=== PATIENT | female | born 1965 | race Caucasian/White ===

== ENCOUNTER 2025-06-11 06:25 | Day surgery (SDC) | payer MEDICARE, MEDICAID, SELFPAY ==
[2025-06-07 08:44] VITALS: BMI 45.4
--- OUTSIDE RECORDS SUMMARY | 2025-06-09 23:59 | XMS_ITS | Continuity of Care Document ---
Author Organization [facility] Adult Address [address] [place] [address]- Care Team Providers Care Web Press Operator Apprentice Name Role Phone Michelle Ward Primary Care Physician Encounter [facility] Date(s): 05/10/25 - 06/09/25 [facility] [address] [place] [address]- Encounter Type: Triage Allergies, Adverse Reactions, Alerts Substance Criticality Severity Reaction Reaction Severity Status metFORMIN Active Augmentin Active Bactrim 1 Unable to assess criticality Persistent Mild yeast infection Active 1yeast overgrowth Immunizations Given and Recorded Vaccine Date Status Refusal Reason zoster vaccine, inactivated 03/14/24 Recorded influenza virus vaccine, inactivated 03/14/24 Calixto rded influenza virus vaccine, inactivated 1 05/05/23 Gi solange influenza virus vaccine, inactivated 2 07/06/22 Gi solange influenza virus vaccine, inactivated 05/16/21 Calixto rded influenza virus vaccine, inactivated 08/17/18 Calixto rded influenza virus vaccine, inactivated 04/06/17 Calixto rded influenza virus vaccine, inactivated 04/14/16 Calixto rded influenza virus vaccine, inactivated 05/07/15 Calixto rded influenza virus vaccine, inactivated 05/16/14 Calixto rded tetanus-diphtheria toxoids (Td) 3 01/08/23 Given pneumococcal 20-valent conjugate vaccine 4 01/08/23 Given pneumococcal 20-valent conjugate vaccine 5 07/06/22 Given SARS-CoV-2 (COVID-19) mRNA BNT-162b2 vac 05/16/21 Recorded SARS-CoV-2 (COVID-19) mRNA BNT-162b2 vac 10/06/20 Recorded SARS-CoV-2 (COVID-19) mRNA BNT-162b2 vac 09/15/20 Recorded hepatitis B adult vaccine 05/07/15 Recorded hepatitis B adult vaccine 07/22/14 Recorded hepatitis B adult vaccine 06/21/14 Recorded Varicella Virus Vaccine 08/01/14 Recorded Measles/Mumps/Rubella Virus Vaccine 08/01/14 Recor ded Measles/Mumps/Rubella Virus Vaccine 06/26/14 Recor ded tetanus/diphtheria/pertussis, acel(Tdap) 04/02/08 Given 1Result Comment: [facility] [id number] 2Result Comment: [id number] 3Result Comment: [facility] [id number] 4Result Comment: [facility] [id number] 5Result Comment: [facility] [id number] Medications Albuterol (Eqv-ProAir HFA) 2 Unknown, Inhalation, 3 Refill(s), Inhale 2 Puffs into the lungs 4 times daily as needed for Wheezing or Shortness of Breath., 0 Refills, 06/17/22 10:52:00 AM EST, Partial fill upon patient request if the prescription is for a schedule II opioid drug. Start Date: 06/17/22 Status: Ordered Medication Dispense Status: Completed Total Allowed Fills: 1 Fills Dispensed: 0 Alcohol Pads See Instructions, # 100 each, Refills 1, Tot. Refills 1, Maintenance, Use 3 times a day for blood glucose check., 05/03/23 11:09:00 AM EDT, Compound, 162, cm, 05/03/23 7:47:00 EDT, Height, 135.8, kg,05/02/23 13:49:00 EDT, Dry Weight Start Date: 05/03/23 Stop Date: 07/02/23 Status: Ordered Medication Dispense Status: Completed Quantity: 100.0 Unit: each Total Allowed Fills: 2 Fills Dispensed: 0 Anoro Ellipta 62.5 mcg-25 mcg/inh inhalation powder 60 each, INHALE ONE PUFF BY MOUTH EVERY DAY, 0 Refills, 06/17/22 10:52:00 AM EST, Partial fill uponpatient request if the prescription is for a schedule II opioid drug. Start Date: 06/17/22 Status: Ordered Medication Dispense Status: Completed Total Allowed Fills: 1 Fills Dispensed: 0 Freestyle lancets Freestyle lancets, See Instructions, # 200 each, Refills 10, Tot. Refills 10, Maintenance, to use to check bld sugars 4 times daily for T2DM, 08/11/22 2:41:00 PM EST, Supply, 162.5, cm, 07/10/22 9:25:00 EST, Height, 134, kg, 03/07/21 14:38:00 EDT, Dry Weight Start Date: 08/11/22 Status: Ordered Medication Dispense Status: Completed Quantity: 200.0 Unit: each Total Allowed Fills: 11 Fills Dispensed: 0 Freestyle Lancets See Instructions, # 200 each, Refills 0, Tot. Refills 0, Maintenance, Use 3 times a day for blood glucose check., 05/03/23 11:10:00 AM EDT, Supply, 162, cm, 05/03/23 7:47:00 EDT, Height, 135.8, kg, 05/02/23 13:49:00 EDT, Dry Weight Start Date: 05/03/23 Stop Date: 06/02/23 Status: Ordered Medication Dispense Status: Completed Quantity: 200.0 Unit: each Total Allowed Fills: 1 Fills Dispensed: 0 FREESTYLE KAILA 3 SENSOR FREESTYLE KAILA 3 SENSOR, See Instructions, # 2 each, Refills 11, Tot. Refills 11, Maintenance, 2 Sensors per month changed q14 days Diagnosis Diabetes E11.9, 05/10/25 4:04:00 PM EDT, Supply, 162, cm, 02/14/25 7:59:00 EDT, Height Start Date: 05/10/25 Status: Ordered Medication Dispense Status: Completed Quantity: 2.0 Unit: each Total Allowed Fills: 12 Fills Dispensed: 0 Freestyle lite meter Freestyle lite meter, See Instructions, # 1 each, Refills 0, Tot. Refills 0, Maintenance, to use tocheck bld sugars 4 times daily for T2DM, 08/11/22 2:42:00 PM EST, Supply, 162.5, cm, 07/10/22 9:25:00 EST, Height, 134, kg, 03/07/21 14:38:00 EDT, Dry Weight Start Date: 08/11/22 Status: Ordered Medication Dispense Status: Completed Quantity: 1.0 Unit: each Total Allowed Fills: 1 Fills Dispensed: 0 Freestyle Lite Monitor See Instructions, # 1 each, Refills 0, Tot. Refills 0, Maintenance, Use 3 times a day for blood glucose check., 05/03/23 11:09:00 AM EDT, Supply, 162, cm, 05/03/23 7:47:00 EDT, Height, 135.8, kg, 05/02/23 13:49:00 EDT, Dry Weight Start Date: 05/03/23 Stop Date: 06/02/23 Status: Ordered Medication Dispense Status: Completed Quantity: 1.0 Unit: each Total Allowed Fills: 1 Fills Dispensed: 0 Freestyle lite test strips Freestyle lite test strips, See Instructions, # 200 each, Refills 10, Tot. Refills 10, Maintenance,Use 3 times a day for blood glucose check., 08/11/22 2:42:00 PM EST, Supply, 162.5, cm, 07/10/22 9:25:00 EST, Height, 134, kg, 03/07/21 14:38:00 EDT, Dry Weight Start Date: 08/11/22 Status: Ordered Medication Dispense Status: Completed Quantity: 200.0 Unit: each Total Allowed Fills: 11 Fills Dispensed: 0 Freestyle Lite Test Strips See Instructions, # 100 each, Refills 1, Tot. Refills 1, Maintenance, Use 3 times a day for blood glucose check., 07/26/23 2:59:00 PM EST, Supply, 162, cm, 05/05/23 11:10:00 EDT, Height, 135.8, kg, 05/02/23 13:49:00 EDT, Dry Weight Start Date: 07/26/23 Stop Date: 09/24/23 Status: Ordered Medication Dispense Status: Completed Quantity: 100.0 Unit: each Total Allowed Fills: 2 Fills Dispensed: 0 gabapentin 300 mg oral capsule 2, capsule, By Mouth, Daily at bedtime, # 60 capsule, Refills 0, Maintenance, 10/15/23 7:00:00 AM EDT, Route to Pharmacy Electronically, [facility] #[id number], 162, cm, 09/06/23 8:02:00 EST, Height, 135.8, kg, 05/02/23 13:49:00 EDT, Dry Weight Start Date: 10/15/23 Status: Ordered Medication Dispense Status: Completed Quantity: 60.0 Unit: capsule Total Allowed Fills: 1 Fills Dispensed: 0 hydrochlorothiazide 25 mg oral tablet 1, tablet, By Mouth, Daily, # 90 tablet, Refills 0, Maintenance, 01/01/25 1:30:00 PM EDT, Route to Pharmacy Electronically, [facility] #[id number], 162, cm, 09/18/24 15:20:00 EST, Height, 135.8, kg, 05/02/23 13:49:00 EDT, Dry Weight Start Date: 01/01/25 Status: Ordered Medication Dispense Status: Completed Quantity: 90.0 Unit: tablet Total Allowed Fills: 1 Fills Dispensed: 0 hydrOXYzine hydrochloride 25 mg oral tablet See Instructions, 1 tablet By Mouth twice a day as needed for anxiety, # 180 tablet, 3 Refills, Soft Stop, 11/05/23 7:02:00 AM EDT, Tablet, [facility] #[id number], Partial fill upon patient request if the prescription is for a schedule II opioid drug., 162, cm, 09/06/23 8:02:00 EST, Height, 135.8, kg, 05/02/23 13:49:00 EDT, Dry Weight Start Date: 11/05/23 Status: Ordered Medication Dispense Status: Completed Quantity: 180.0 Unit: tablet Total Allowed Fills: 4 Fills Dispensed: 0 Lantus Solostar Pen 100 units/mL subcutaneous solution See Instructions, ADMINISTER 55 UNITS UNDER THE SKIN once daily. E11.9, # 30 mL, 5 Refills, Maintenance, 02/14/25 11:37:00 AM EDT, [facility] #[id number], 162, cm, 02/14/25 7:59:00 EDT, Height, 135.8, kg, 05/02/23 13:49:00 EDT, Dry Weight Start Date: 02/14/25 Status: Ordered Medication Dispense Status: Completed Quantity: 30.0 Unit: mL Total Allowed Fills: 6 Fills Dispensed: 0 Lexapro 20 mg oral tablet 1 tablet = 20 mg, By Mouth, Daily, # 30 tablet, 0 Refills, Maintenance, 12/27/17 11:21:54 AM EDT, Tablet Start Date: 12/27/17 Status: Ordered Medication Dispense Status: Completed Quantity: 30.0 Unit: tablet Total Allowed Fills: 1 Fills Dispensed: 0 Mounjaro 10 mg/0.5 mL subcutaneous solution = 10 mg, Subcutaneous Injection, Every week, rotate injection sites; dose increase please fill as pens, # 2 mL, 5 Refills, Maintenance, 04/10/25 1:51:00 PM EDT, Solution, [facility] #[id number], Partial fill upon patient request if the prescription is for a schedule II opioid drug., 162, cm, 02/14/25 7:59:00 EDT, Height, 135.8, kg, 05/02/23 13:49:00 EDT, Dry Weight Start Date: 04/10/25 Status: Ordered Medication Dispense Status: Completed Quantity: 2.0 Unit: mL Total Allowed Fills: 6 Fills Dispensed: 0 NovoLOG FlexPen 100 units/mL injectable solution See Instructions, USE THREE TIMES DAILY BEFORE MEALS BG 100-149 3 UNITS 150-199 5 UNITS 200-249 7 UNITS 240-299 9 UNITS 300-349 11 UNITS 350-400 13 UNITS > 400 15 units Max dailly dose 45 units., # 30 mL, 5 Refills, Maintenance, 02/14/25 12:39:00 PM EDT, [facility] #[id number], 162, cm, 02/14/25 7:59:00 EDT, Height, 135.8, kg, 05/02/23 13:49:00 EDT, Dry Weight Start Date: 02/14/25 Status: Ordered Medication Dispense Status: Completed Quantity: 30.0 Unit: mL Total Allowed Fills: 6 Fills Dispensed: 0 Nystatin Powder Topically, 3 times a day, 0 Refills, Maintenance Start Date: 09/21/19 Status: Ordered Medication Dispense Status: Completed Total Allowed Fills: 1 Fills Dispensed: 0 omeprazole 20 mg oral enteric coated capsule See Instructions, TAKE 1 TABLET BY MOUTH TWICE DAILY, # 180 capsule, 0 Refills, Maintenance, 11/15/23 7:30:00 AM EDT, [facility] #[id number], 162, cm, 11/08/23 7:53:00 EDT, Height, 135.8, kg, 05/02/23 13:49:00 EDT, Dry Weight Start Date: 11/15/23 Status: Ordered Medication Dispense Status: Completed Quantity: 180.0 Unit: capsule Total Allowed Fills: 1 Fills Dispensed: 0 Pen [place], 31 G x 8 mm BD Ultra Fine III See Instructions, # 100 each, Refills 1, Tot. Refills 1, Maintenance, Use 3 times a day for blood glucose check., 05/03/23 11:10:00 AM EDT, Supply, 162, cm, 05/03/23 7:47:00 EDT, Height, 135.8, kg, 05/02/23 13:49:00 EDT, Dry Weight Start Date: 05/03/23 Stop Date: 07/02/23 Status: Ordered Medication Dispense Status: Completed Quantity: 100.0 Unit: each Total Allowed Fills: 2 Fills Dispensed: 0 rosuvastatin 40 mg oral tablet See Instructions, TAKE 1 TABLET BY MOUTH DAILY 90 EACH, TAKE 1 TABLET BY MOUTH DAILY, # 90 tablet, 0 Refills, Maintenance, 04/23/25 10:25:00 AM EDT, [facility] #[id number], 162, cm, 02/14/25 7:59:00 EDT, Height, 135.8, kg, 05/02/23 13:49:00 EDT, Dry Weight Start Date: 04/23/25 Status: Ordered Medication Dispense Status: Completed Quantity: 90.0 Unit: tablet Total Allowed Fills: 1 Fills Dispensed: 0 valsartan 80 mg oral tablet See Instructions, TAKE 1 TABLET BY MOUTH DAILY 90 EACH, TAKE 1 TABLET BY MOUTH DAILY, # 90 tablet, Refills 0, Tot. Refills 0, Maintenance, 04/17/25 10:12:00 PM EDT, Instructions Replace Required Details, Route to Pharmacy Electronically, [facility] #[id number], Please ask pt to complete labs for any further refills., 162, cm, 02/14/25 7:59:00 EDT, Height, 135.8, kg, 05/02/23 13:49:00 EDT, DryWeight Start Date: 04/17/25 Status: Ordered Medication Dispense Status: Completed Quantity: 90.0 Unit: tablet Total Allowed Fills: 1 Fills Dispensed: 0 Vitamin D2 2000 intl units oral capsule 1 capsule = 50 mcg, By Mouth, Daily, # 90 capsule, 2 Refills, Maintenance, 10/07/22 12:07:00 PM EDT,[facility] #[id number], Partial fill upon patient request if the prescription is for a schedule II opioid drug., 162.5, cm, 10/05/22 8:11:00 EDT, Height, 129.4, kg, 10/05/22 7:47:00 EDT, Dry Weight Start Date: 10/07/22 Status: Ordered Medication Dispense Status: Completed Quantity: 90.0 Unit: capsule Total Allowed Fills: 3 Fills Dispensed: 0 Vitamin D3 2000 intl units oral tablet 1 tablet, By Mouth, Daily, # 90 tablet, 1 Refills, Maintenance, 01/24/25 8:58:00 AM EDT, [facility] #[id number], 162, cm, 01/22/25 9:24:00 EDT, Height, 135.8, kg, 05/02/23 13:49:00 EDT, Dry Weight Start Date: 01/24/25 Status: Ordered Medication Dispense Status: Completed Quantity: 90.0 Unit: tablet Total Allowed Fills: 2 Fills Dispensed: 0 Zuplenz 8 mg oral disintegrating strip 1 Unknown, Oral, 6 Refill(s), Take 1 Tablet by mouth 3 times daily as needed (for nausea)., 0 Refills, 06/17/22 10:51:00 AM EST, Partial fill upon patient request if the prescription is for a schedule II opioid drug. Start Date: 06/17/22 Status: Ordered Medication Dispense Status: Completed Total Allowed Fills: 1 Fills Dispensed: 0 Problem List Condition Confirmation Course Effective Dates Status H ealth Status Informant Adjustment reaction with anxiety and depression Confirmed Active Adrenal mass 1 Confirmed Active Lumbar facet arthropathy Confirmed Active Ascending aorta dilatation 2 Confirmed Active Atrophic gastritis without hemorrhage Confirmed Active CTS (carpal tunnel syndrome) Confirmed Active COPD (chronic obstructive pulmonary disease) Confirmed Active Diverticulosis Confirmed Active Environmental allergies Confirmed Active GERD (gastroesophageal reflux disease) Confirmed Active Hemorrhoids 3 Confirmed Active Internal and external hemorrhoids without complication Confirmed Active Hyperlipidemia Confirmed Active HTN (hypertension) Confirmed Active Recurrent incisional hernia with incarceration Confirmed Active IBS (irritable bowel syndrome) Confirmed Active Lipoma Confirmed Active Schatzki's ring Confirmed Active Lumbar discogenic pain syndrome Confirmed Active Pulmonary nodules Confirmed Active JACQUELINE (obstructive sleep apnea) Confirmed Active PTSD (post-traumatic stress disorder) Confirmed Active Seasonal allergies Confirmed Active Gastroparesis due to secondary diabetes Confirmed Active Severe obesity Confirmed Active Hepatic steatosis Confirmed Active Tobacco abuse Confirmed Active Type 2 diabetes mellitus Confirmed Active Vitamin D deficiency Confirmed Active 1L Adrenal Adenoma MRI 05/25/17 [facility] 2[facility]cho 04/2017: Mild ascending aortic dilation, mild to moderate concentric left ventricular hypertrophy, diastolic dysfunction and normal left ventricular systolic function. 3Internal and External Social History Social History Type Response Smoking Status Current every day sm oker; Type: Cigarettes; Other: 1/2 PPD; entered on: 05/08/16 Sex Sex Representation Female (finding) Patient Care team information Care Team Personnel Name: Michelle Ward Position: [facility] PCO Associate Professional Member Role: PCP Address: [address] [place] [address]- Telecom: Name: Angelina Martins Position: [facility] Outreach Member Role: Lifetime Consulting Physician Name: Yulia Gaviria Position: [facility] Outreach Member Role: Lifetime Consulting Physician Name: Ziyad Conway MD Position: [facility] Physician - Endocrinology Member Role: Lifetime Consulting Physician Address: [address] [place] [address], [address] [place], [place] [address] Telecom: Care Team Related Persons Name: LUCY SCHULTE Name: JYOTI VILLALPANDO Name: LATISHA NOLAN Insurance Providers Guarantor name: MICHELLE NOLAN Health Plan Information #: 1 Payer: [employer] ADV PPO Payer Identifier: NA Member Number: [id number] Group Number: [id number] Subscriber Identifier: NA Relationship to Subscriber: self Coverage Type: Medicare PPO Coverage Verification Date: NA Telecom: NA Address: NA Health Plan Information #: 2 Payer: [employer] Payer Identifier: NA Member Number: [id number] Group Number: [id number] Subscriber Identifier: NA Relationship to Subscriber: self Coverage Type: MEDICAID Coverage Verification Date: NA Telecom: NA Address:
--- NOTE | ~2025-06-11 | FL_ITS ---
EXAMINATION: FL GUIDANCE ONLY HISTORY: Procedural guidance COMPARISON: None available. TECHNIQUE: Fluoroscopy time: 12 seconds. Cumulative Dose: 4.50 mGy. DAP: 84.82 uGym2 Images: 1. FINDINGS: A single fluoroscopic spot film of the lumbar spine demonstrates a needle and contrast material in the region of the right L4 pedicle. FL/FL guidance in OR IMPRESSION: Fluoroscopy during procedure. Please see procedure report for additional information. Electronically signed by: Arjun Williamson MD 06/11/2025 08:49 AM EST
--- OUTSIDE RECORDS SUMMARY | 2025-06-11 06:24 | XMS_ITS | Clinical Summary ---
Author Organization [facility] Address [address] [place] [address] Care Team Providers Care Business Continuity Planner Name Role Phone Michelle Mckeon PA-C Primary Care Provider [phone] Allergies Active Allergy Reactions Criticality Noted Date Comments Sulfamethoxazole-Trimethoprim 2018 Medications Medication Sig Dispensed Refills Start Date End Date Status escitalopram (LEXAPRO) 20 MG tablet Take 20 mg by mouth daily. 0 Active simvastatin (ZOCOR) tablet 20 mg Take 40 mg by mouth every night at bedtime. 0 Active furosemide (LASIX) 20 MG tablet Take 1 tablet (20 mg total) by mouth daily. 7 tablet 0 12/05/2018 Active Insulin Glargine (BASAGLAR KWIKPEN SC) Inject 54 Units under the skin. 0 Active loratadine (CLARITIN) 10 MG tablet Take 10 mg by mouth daily. 0 Active hydroCHLOROthiazide (MICROZIDE) 12.5 MG capsule Take 12.5 mg by mouth daily. 0 Active omeprazole (PriLOSEC) 20 MG capsule Take 20 mg by mouth daily. 0 Active dicyclomine (BENTYL) 10 MG capsule Take 1 capsule (10 mg total) by mouth 4 (four) times a day before meals and at bedtime. 30 capsule 0 01/09/2021 Active oxyCODONE (ROXICODONE) 5 MG immediate release tablet Take 1 tablet (5 mg total) by mouth every 6 (six) hours as needed for pain. 10 tablet 0 12/02/2021 Active ondansetron (ZOFRAN-ODT) 4 MG disintegrating tablet Take 1 tablet (4 mg total) by mouth every 6 (six) hours as needed for nausea. 10 tablet 0 12/02/2021 Active predniSONE (DELTASONE) tablet 20 mg 3 tabs daily 15 tablet 0 04/12/2023 Active cyclobenzaprine (FLEXERIL) 10 MG tablet Take 1 tablet (10 mg total) by mouth 3 (three) times a day as needed for muscle spasms. 30 tablet 0 04/12/2023 Active diclofenac (VOLTAREN) 50 MG EC tablet Take 1 tablet (50 mg total) by mouth 2 (two) times a day. 30 tablet 0 04/12/2023 Active gabapentin (NEURONTIN) 300 MG capsule Take 1 capsule (300 mg total) by mouth 3 (three) times a day. 90 capsule 0 04/12/2023 Active Active Problems No known active problems Social History Tobacco Use Types Packs/Day Years Used Date Smoking Tobacco: Every Day Cigarettes 1 Smokeless Tobacco: Never Alcohol Use Standard Drinks/Week Comments No 0 (1 standard drink = 0.6 oz pur e alcohol) Sex and Gender Information Value Date Recorded Sex Assigned at Female 11/10/2018 12:31 AM EDT Gender Identity Not on file Sexual Orientation Not on file Job Start Date Occupation Industry Not on file Not on file Not on file Last Filed Vital Signs Vital Sign Reading Time Taken Comments Blood Pressure 154/65 05/01/2023 3:38 AM EDT Pulse 85 05/01/2023 3:38 AM EDT Temperature 35.9 C (96.6 F) 05/01/2023 1:18 AM EDT Respiratory Rate 18 05/01/2023 3:38 AM EDT Oxygen Saturation 95% 05/01/2023 3:38 AM EDT Inhaled Oxygen Concentration - - Weight 136.1 kg (300 lb) 05/01/2023 1:18 AM EDT Height 162.6 cm (5' 4 ) 05/01/2023 1:18 AM EDT Body Mass Index 51.49 05/01/2023 1:18 AM EDT Plan of Treatment Health Maintenance Due Date Last Done Comments Hepatitis C Screening 1965 Depression Screening 1977 BMI Counseling 10/02/1983 Preventative Health Evaluation 10/02/1983 Tobacco Cessation Counseling 10/02/1983 Cervical Cancer Screening (Pap Smear) 1986 Colon Cancer Screening (Colonoscopy) 2010 Breast Cancer Screening (Mammogram) 10/02/2015 Shingrix-Zoster Vaccine (1 of 2) 10/02/2015 COVID-19 Vaccine ( season) 2025 05/16/2021, 10/06/2020, 09/15/2020 Influenza Vaccine (#1) 2025 2, 05/16/2021, 08/17/2018, Additional history exists DTap / Tdap / Td (3 - Td or Tdap) 01/08/2033 01/08/2023, 04/02/2008 Hepatitis B Vaccines Completed 05/07/2015, 07/22/2014, 06/21/2014 Pneumococcal Vaccine Completed 01/08/2023, 07/06/2022, 08/24/2015 RSV Ped < 20 months Aged Out No longe r eligible based on patient's age to complete this topic Care Teams Business Continuity Planner Relationship Specialty Start Date End Date Michelle Mckeon PA-C [address] [place], [place] [id number] PCP - General Medical Services 04/12/23
--- OUTSIDE RECORDS SUMMARY | 2025-06-11 06:24 | XMS_ITS | Clinical Summary ---
Author Organization [facility] Address [address] [place] [address] Phone Care Team Providers Care Academic Associate Name Role Phone Michelle Mckeon Primary Care Provider [phone] Allergies Active Allergy Reactions Criticality Noted Date Comments Alogliptin GI intolerance Medium 06/18/2020 Amoxicillin-Pot Clavulanate Other 06/16/2022 TONGUE CRACKS Cephalexin Other 04/08/2010 Thrush and sores on mouth Metformin GI intolerance 01/24/2018 Vomitting and diarrhea Pollen Extracts Other 11/29/2015 Post nasal drip , sneezing , runny nose Simvastatin GI intolerance,Cramps 05/24/2019 GI upset Medications pen needle, diabetic 32 gauge x 5/32 needle Inject 1 Each into the skin daily. USE WITH INSULIN PEN EVERY DAY 2 Active FREESTYLE LANCETS MISC Up to four times a day 2 Active blood sugar diagnostic (FreeStyle Lite Strips) test strip USE TO TEST BLOOD SUGAR FOUR TIMES DAILY 2 Active blood-glucose meter kit Use to check blood sugars 2 Active dextrose (GLUCOSE ORAL) Take 4 Tablets by mouth as needed for Other (hypoglycemia ). 3 Active DULoxetine (CYMBALTA) [address] capsule TAKE 1 CAPSULE BY MOUTH EVERY MORNING 1 Active glucagon (Baqsimi) 3 mg/actuation nasal spray 1 Dose by Nasal route as needed for Other (hypoglycemia ). 3 Active hydroCHLOROthiazid e (HYDRODIURIL) 25 mg tablet Take 1 Tablet by mouth daily. 2 Active hydrocortisone (ANUSOL-HC) 2.5 % rectal cream if needed. 4 Active hydrOXYzine HCL (ATARAX) 25 mg tablet if needed. 2 Active ibuprofen (ADVIL,MOTRIN) 800 mg tablet Take 1 tablet by mouth every 8 hours as needed for Pain. 2 Active insulin aspart (NovoLOG Flexpen U-100 Insulin) 100 unit/mL (3 mL) injection pen Use 3 times a day with meals per sliding scale: 100-149: 8 units; 150-200: 10 units; 201-250: 12 units; 251-300: 14 units; 301-350: 16 units; 351-400: 18 units 3 Active insulin glargine (Lantus Solostar U-100 Insulin) 100 unit/mL (3 mL) injection pen Inject 60 Units into the skin at bedtime. 3 Active nystatin (Nystop) 100,000 unit/gram powder APPLY TO AFFECTED AREAS TWICE DAILY FOR 2 WEEKS 2 Active ondansetron ODT (ZOFRAN-ODT) 8 mg disintegrating tablet Take 1 Tablet by mouth 3 times daily. 4 Active rosuvastatin (CRESTOR) 40 mg tablet Take 1 Tablet by mouth daily. 2 Active semaglutide (Ozempic) 0.25 mg or 0.5 mg (2 mg/3 mL) injection pen Inject into the skin. Active valsartan (DIOVAN) 80 mg tablet TAKE 1 TABLET BY MOUTH DAILY 2 Active FreeStyle Tawana 3 Sensor device USE 1 DEVICE EVERY 14 DAYS 6 each 3 4 Active albuterol HFA (PROAIR HFA ; PROVENTIL HFA ; VENTOLIN HFA) 90 mcg/actuation inhalerIndications :Chronic obstructive pulmonary disease, unspecified COPD type (CMS/HCC V24, CMS/HCC V28) INHALE 2 PUFFS INTO THE LUNGS FOUR TIMES DAILY NEEDED FOR WHEEZING OR SHORTNESS OF BREATH 18 g 2 5 Active umeclidinium-vilan teroL (Anoro Ellipta) 62.5-25 mcg/actuation inhaler INHALE 1 PUFF BY MOUTH EVERY DAY 60 each 11 5 Active oxyCODONE-acetamin ophen (PERCOCET) 10-325 mg per tablet Active Active Problems Problem Noted Date Diagnosed Date Chronic obstructive pulmonar y disease ([facility] V24, [facility] V28) 06/24/2021 Atrophic gastritis without hemorrhage 03/08/2020 Lipoma of left thigh 09/04/2019 Essential hypertension 05/23/2019 JACQUELINE (obstructive sleep apnea) 05/23/2019 Seasonal allergies 05/23/2019 Chronic midline low back pain without sciatica 0 09/15/2018 Lumbar discogenic pain syndrome 09/15/2018 Lumbar facet arthropathy 09/15/2018 Adjustment reaction with anxiety and depression 05/02/2018 PTSD (post-traumatic stress disorder) 05/02/2018 Morbid obesity with BMI of 4 5.0-49.9, adult ([facility] V24, [facility] V28) 04/14/2018 Type 2 diabetes mellitus socorro ated with insulin ([facility] V24, [facility] V28) 05/24/2017 Adrenal mass ([facility] V24) 05/14/2016 Overview (05/29/2024): Left Adrenal Adenoma - MRI 05/25/17 [facility] Diverticulosis of large intestine with hemorrhag e 02/12/2016 Gastroesophageal reflux disease without esophagi tis 02/12/2016 Internal and external hemorrhoids without compli cation 02/12/2016 Irritable bowel syndrome with diarrhea 6 Schatzki's ring 02/12/2016 Smoking 08/23/2015 Overview (05/29/2024): ECHO 04/2017:mild ascending aortic dilatation, mild to moderate concentric left ventricular hypertrophy, diastolic dysfunction and normal left ventricular systolic function. Recurrent incisional hernia with incarceration 0 08/22/2015 Encounters Date Type Department Care Team Description 06/04/2025 12:44 PM EST - 06/04/2025 11:59 PM EST Hospital Encounter [facility] CT Scan [address] [place] [address] Encounter for screening for malignant neoplasm of respiratory organs; Nicotine dependence, cigarettes, uncomplicated Discharge Disposition: Home or Self Care 05/11/2025 Telephone Lung Screening Program - [place] [address] [facility] [address] [place] [address] Corin Sweet MA 04/27/2025 9:00 AM EDT Office Visit Pulmonology - [place] [address] [facility] [address] [place] [address] Bari Haynes MD Chronic obstructive pulmonary disease, unspecified COPD type (CMS/HCC V24, CMS/HCC V28) (Primary Dx); Tobacco abuse; JACQUELINE (obstructive sleep apnea) 03/12/2025 Telephone Pulmonology - [place] [address] [facility] [address] [place] [address] Bari Haynes MD from Last 3 Months Immunizations Immunization Administration Dates Next Due Influenza Quadravalent, MDCK , 0.5ml, preservative free (Flucelvax) 6mo and older 08/17/2018 Influenza trivalent, 0.5mL, preservative free (Fluarix; FluLaval; Fluzone) ages 6mo and older (Afluria) 3 years and older 04/14/2016 PPD Test 11/20/2015 [place] SARS-CoV-2 COVID-19, mRNA, LNP-S, preservative free 05/16/2021,10/06/2020,09/15/2020 Surgical History Surgery Date Site/Laterality Comments SECTION PROCEDURE: HISTORICAL ; COMMENT: x 2 HYSTERECTOMY PROCEDURE: HISTORICAL HYSTERECTOMY; COMMENT: fibroids HERNIA REPAIR PROCEDURE: REPAIR INGUINAL HERNIA-ABDOMEN BREAST BIOPSY 10 plus yrs. ago Left PROCEDURE: BX BREAST; PERC NEEDLE CORE W/IMAG GUID; COMMENT: lt. breast bx -benign OTHER SURGICAL HISTORY 12/25/15 PROCEDURE: COLOREC CANC SCRN,SCR COLONOSCOPY+BE; COMMENT: tics and hemorrhoids; repeat in 10 yrs ESOPHAGOGASTRODUODENOSCOPY 12/25/15 PROCEDURE: DC EGD TRANSORAL BIOPSY SINGLE/MULTIPLE; COMMENT: Minimal Schatzki ring, dilated to 20 mm with balloon; normal esophageal bxys CHOLECYSTECTOMY 04/2016 PROCEDURE: LAPAROSCOPIC CHOLECYSTECT OTHER SURGICAL HISTORY 12/31/2017 PROCEDURE: DC VERTEBROPLASTY EACH ADDL CERVICOTHOR/LUMBOSACRAL; COMMENT: Vertebroplasty for compression fracture in L1 Medical History Medical History Date Comments High cholesterol DX:High cholest darwin DVT (deep venous thrombosis) ([facility] V24, [facility] V28) DX:DVT (deep venous thrombos is) ([facility]); COMMENT: 2000 Diverticulosis of large inte donato with hemorrhage 02/12/2016 DX:Diverticulosis of large intestine with hemorrhage Internal and external hemorr hoids without complication 02/12/2016 DX:Internal and external hemorrhoids without complication Schatzki's ring 02/12/2016 DX:Schatzki's ri ng Gastroesophageal reflux dise ase without esophagitis 02/12/2016 DX:Gastroesophageal reflux d isease without esophagitis Irritable bowel syndrome with diarrhea 02/12/2016 DX:Irritable bowel syndrome with diarrhea Uncontrolled diabetes mellit us type 2 without complications 05/24/2017 DX:Uncontrolled diabetes morales litus type 2 without complications Left adrenal mass ([facility] V24) 08/20/2015 DX:Left adrenal mass ([facility]); COMMENT: 2.1x2.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.5cm L adrenal lipid-rich adenoma Fatty liver DX:Fatty liver Sleep apnea Pulmonary nodule, right Obese Hypertension Asthma Shortness of breath Dysphagia Anxiety Depression PTSD (post-traumatic stress disorder) Psychiatric illness Arthritis Joint pain Fractures Family History Medical History Relation Name Comments Diabetes Aunt 1 Heart attack Aunt 2 Other cancer Father melanoma Other: Bladder and lung cancer Mother Relation Name Status Comments Aunt 1 Aunt 2 Father Mother Social History Tobacco Use Types Packs/Day Years Used Date Smoking Tobacco: Every Day Cigarettes 1 45.9 Started: 07/19/1979 Smokeless Tobacco: Never Tobacco Cessation:Ready to Q uit: Not Asked; Counseling Given: Not Answered Comments:Current smoker, started age 13, PPD 1, TRISTEN 44.9 Alcohol Use Standard Drinks/Week Comments Not Currently 0 (1 standard drink = 0.6 oz pur e alcohol) Interpersonal Safety Answer Date Record ed Physical Abuse Unrecognized value 02/06/2025 Verbal Abuse Unrecognized value 02/06/2025 Comments No Sex and Gender Information Value Date Recorded Sex Assigned at Female 06/27/2024 6:33 AM EST Legal Sex Female 7:34 AM EST Gender Identity Female 06/27/2024 6:33 AM EST Sexual Orientation Straight 06/27/2024 6: 33 AM EST Obstetrics History Last Filed Vital Signs Vital Sign Reading Time Taken Comments Blood Pressure 128/76 04/27/2025 9:04 AM EDT Pulse 74 04/27/2025 9:04 AM EDT Temperature 36.6 C (97.8 F) 04/27/2025 9:04 AM EDT Respiratory Rate 20 04/27/2025 9:04 AM EDT Oxygen Saturation 95% 04/27/2025 9:04 AM EDT Inhaled Oxygen Concentration - - Weight 120 kg (265 lb 3.2 oz) 04/27/2025 9:04 AM EDT Height 162.6 cm (5' 4 ) 04/27/2025 9:04 AM EDT Body Mass Index 45.52 04/27/2025 9:04 AM EDT Plan of Treatment Upcoming Encounters Date Type Department Care Team (Late st Contact Info) Description 09/28/2025 8:30 AM EDT Ancillary Procedure Pulmonology [facility] [address] [address] 10/30/2025 8:15 AM EDT Office Visit Pulmonology [address] [address] Bari Haynes MD [address] [place] [phone] Health Maintenance Due Date Last Done Comments Diabetes: Annual Foot Exam 10/02/1975 Diabetes: Annual Retina Eye Exam 10/02/1975 Hepatitis A Vaccines (1 of 2 - Risk 2-dose series) 1984 Cervical Cancer Screening: Pap Smear 1986 RSV Immunization Adult Patients (1 - Risk 50-74 years 1-dose series) 10/02/2015 Breast Cancer Screening 10/25/2020 10/25/2018 HIV Screening 06/26/2022 Medicare Annual Wellness Visit 06/26/2022 Social Influencers of Health Screening 06/26/2022 Zoster Vaccines (2 of 2) 05/09/2024 03/14/2024, 07/19 Diabetes: Blood Sugar Control Test (HGBA1C) 05/15/2024 06/07/2023 Diabetes: Annual Urine Albumin-Creatinine Ratio (uACR) 06/07/2024 06/07/2023 Diabetes: Annual GFR (Glomerular Filtration Rate) 06/07/2024 06/07/2023, 05/01/2023, 04/11/2023, Additional history exists Hypertension/CHF/CAD Annual BMP Blood Test 06/07/2024 06/07/2023, 05/01/2023, 04/11/2023, Additional history exists Depression Screening 07/19/2024 COVID-19 Vaccine ( season) 2025 05/16/2021, 10/06/2020, 09/15/2020 Influenza Vaccine (#1) 2025 4, 05/05/2023, 07/06/2022, Additional history exists Lung Cancer Screening (Low Dose CT) 06/01/2025 06/01/2024 Cholesterol Screening (Lipid Panel) 06/07/2028 06/07/2023 Colorectal Cancer Screening: Colonoscopy 01/21/2030 01/22/2020 DTaP,Tdap,and Td Vaccines (3 - Td or Tdap) 01/08/2033 01/08/2023, 04/02/2008 MMR Vaccines Aged Out 08/01/2014, 06/26/2014 No lo nger eligible based on patient's age to complete this topic Varicella Vaccines Aged Out 08/01/2014 No longer eligible based on patient's age to complete this topic Hepatitis B Vaccines Completed 05/07/2015, 07/22/2014, 06/21/2014 Hepatitis C Screening Completed 05/07/2017 Pneumococcal Vaccine: 50+ Years Completed 01/08/2023, 07/06/2022, 08/24/2015 HIB Vaccines Aged Out No longer eligi ble based on patient's age to complete this topic HPV Vaccines Aged Out No longer eligi ble based on patient's age to complete this topic IPV Vaccines Aged Out No longer eligi ble based on patient's age to complete this topic Meningococcal ACWY Vaccine Aged Out N o longer eligible based on patient's age to complete this topic Meningococcal B Vaccine Aged Out No l onger eligible based on patient's age to complete this topic RSV Immunization Patients Under 20 months Aged Out No longer eligible based on patient's age to complete this topic Procedures Procedure Name Priority Date/Time Associated Diagnosis Comments CT LUNG SCREENING Routine 06/01/2024 10: 41 AM EST Cigarette smoker URINE ALBUMIN CREATININE RATIO Routine 06/07/2023 ANNUAL BMP BLOOD TEST Routine 06/07/2023 HEMOGLOBIN A1C Routine 06/07/2023 LIPID PANEL Routine 06/07/2023 COLONOSCOPY Routine 01/22/2020 SCR MAMMO BI INCL CAD Routine 10/25/2018 8:14 AM EDT Encounter for screening mammogram for malignant neoplasm of breast HEPATITIS C SCREENING Routine 05/07/2017 from Last 3 Months or Most Recently Relevant to Health Maintenance Results * CT Lung Screening (06/01/2024 10:41 AM EST) Anatomical Region Laterality Modality Chest Computed Tomogra phy 06/01/2024 5:45 PM EST Impressions 06/01/2024 5:52 PM EST Stable examination. Lung-RADS 2. Follow up examination is advised in one year. -------- FINAL REPORT -------- Dictated By: Jose Amezcua Dictated Date: 06/01/2024 17:45 ET Assigned Physician: Jose Amezcua Reviewed and Electronically Signed By: Jose Amezcua Signed Date: 06/01/2024 17:52 ET Workstation ID: [id number] Transcribed By: Self Edit Transcribed Date: 06/01/2024 17:45 ET Narrative 06/01/2024 5:52 PM EST PROCEDURE: CT chest lung cancer screening low dose examination. INDICATION: CT lung screening. TECHNIQUE: Chest CT without intravenous contrast was performed. Low-dose examination was performed. Reformatted images were evaluated. DOSE: CTDIvol: 4.9mGy. Total exam DLP: 178.4mGy-cm COMPARISON: CT chest May 2023. CT chest February 2022. FINDINGS: NODULES: Stable appearance of a 2 x 0.9 cm nodule in the anterior aspect of the right lower lobe. Several other small nodules appear stable as well. LUNGS: Minimal emphysematous changes. OTHER: Limited views of the upper abdomen appear normal. Again noted is a 3 cm low attenuating mass in the left adrenal gland suggestive of adenoma. This appears stable. No significant mediastinal lymphadenopathy. Mild coronary atherosclerotic disease. Atherosclerotic disease of the aorta without aneurysm. Minimal degenerative changes in the thoracic spine. Result [facility] Carlton Brunner MD IMG CT PROCEDURES Final Result * Urine Albumin Creatinine Ratio (06/07/2023) [facility] Urine Albumin Creatinine Ratio Abstracted Result [facility] HEALTH MAINTENANCE Final Result * Annual BMP Blood Test (06/07/2023) [facility] Annual BMP Blood Test Abstracted Result [facility] EM[facility]ENCY [facility]PART[facility] Final Result * (ABNORMAL) Hemoglobin A1c (06/07/2023) [facility] Hemoglobin A1C 8.5(A) <=6.5 % Blood Venous blood specimen / Unknown Result [facility] LAB BLOOD ORDERABLES Rosario l Result * (ABNORMAL) Lipid panel (06/07/2023) [facility] LDL/HDL Ratio 6(A) 0 - 4 Triglycerides 253(A) 0 - 150 mg/dL Cholesterol 257(A) 0 - 200 mg/dL HDL 47 >=40 mg/dL LDL Cholesterol 160(A) 0 - 100 mg/dL Blood Venous blood specimen / Unknown Result [facility] LAB BLOOD ORDERABLES Rosario l Result * Colonoscopy (01/22/2020) [facility] Colonoscopy No Interpretation , Abstracted Anatomical Region Laterality Modality Other Result [facility] Final Result * SCR MAMMO BI INCL CAD (10/25/2018 8:14 AM EDT) Anatomical Region Laterality Modality Radiographic Sunitha ging 08/17/2018 4:45 PM EST Narrative 10/25/2018 9:10 AM EDT This is a summary report. The complete report is available in the patient's medical record. If you cannot access the medical record, please contact the sending organization for a detailed fax or copy. Full field digital screening mammography, reviewed with CAD and compared to previous. The breasts are composed of fatty and fibroglandular tissue. No suspicious mass, architectural distortion or suspicious calcifications are identified. IMPRESSION: : No mammographic evidence of malignancy. BIRADS 1-Negative; N. 5 year breast cancer risk assessment 1.1 % Lifetime breast cancer risk assessment 8.6 % Breast cancer risk category Low (<15%) Procedure Note Bernardo Meraz MD - 07/07/2022 This is a summary report. The complete report is available in thepatient's medical record. If you cannot access the medical record, pleasecontact the sending organization for a detailed fax or copy. Full field digital screening mammography, reviewed with CAD and comparedto previous. The breasts are composed of fatty and fibroglandular tissue.No suspicious mass, architectural distortion or suspicious calcificationsare identified. IMPRESSION: : No mammographic evidence of malignancy. BIRADS 1-Negative; N. 5 year breast cancer risk assessment 1.1 % Lifetime breast cancer risk assessment 8.6 % Breast cancer risk category Low (<15%) Melissa Gonzalez MD IMG XR PROCEDURES Final Result * Hepatitis C Screening (05/07/2017) Hepatitis C Screening Abstracted Historical Provider HEALTH MAINTENANCE Final Result from Last 3 Months or Most Recently Relevant to Health Maintenance Insurance [place] MEDIC[place] ADVANTAGE Care Teams Academic Associate Relationship Specialty Start Date End Date Michelle Mckeon PA [address] [place] [address] PCP - General 04/12/23
--- OUTSIDE RECORDS SUMMARY | 2025-06-11 06:24 | XMS_ITS ---
Author Name [facility] Organization Unknown Encounters Encounter Type Encounter Reason Primary Diagnosis Location Date Emergency Type 1 diabetes mellitus with hyperglycemia Type 1 diabetes mellitus with hyperglycemia [facility] 05/01/2023 Emergency Dorsalgia, unspecified Dorsalgia , unspecified [facility] 04/11/2023 Emergency Other specified diseases of anus and rectum Other specified diseases of anus and rectum [facility] 04/11/2023 Care Team Organization Name Specialty Phone Email Start Date End Da te [facility] ROSIO VERGARA Primary Care 05/01/2023 [facility] 04/11/202303/20 [facility] 04/11/2023 [facility] Primary Care 0 04/11/2023 04/11/2023 [facility] Melissa Gonzalez Primary Care 05/26/2022 4
--- OUTSIDE RECORDS SUMMARY | 2025-06-11 06:24 | XMS_ITS | Clinical Summary ---
Author Organization [facility] Address [address] [place] [address] Care Team Providers Care Pewter Fabricator Name Role Phone Unavailable Primary Care Provider Unavailabl e Allergies No known active allergies Medications * This document contains information received from the source organization and may not represent a complete record from that organization. No known medications Social History Tobacco Use Types Packs/Day Years Used Date Smoking Tobacco: Every Day Smokeless Tobacco: Never Comments Unknown Sex and Gender Information Value Date Recorded Sex Assigned at Not on file Legal Sex Female 10:00 AM EST Gender Identity Not on file Sexual Orientation Not on file Last Filed Vital Signs Vital Sign Reading Time Taken Comments Blood Pressure 148/90 06/17/2017 10:19 AM EST Pulse 72 06/17/2017 10:19 AM EST Temperature - - Respiratory Rate - - Oxygen Saturation - - Inhaled Oxygen Concentration - - Weight 132 kg (290 lb) 06/17/2017 10:19 AM EST Height 162.6 cm (5' 4 ) 06/17/2017 10:19 AM EST Body Mass Index 49.78 06/17/2017 10:19 AM EST Plan of Treatment Health Maintenance Due Date Last Done Comments Pap Smear 1981 DTaP/Tdap/Td (1 - Tdap) 10/02/1983 Hep B (1 of 3 - 19+ 3-dose series) 1984 Mammogram/Breast Imaging 2005 Pneumococcal 50+ years (1 of 1 - PCV) 10/02/2015 Zoster (Shingrix) (1 of 2) 10/02/2015 COVID-19 Vaccine ( - 2024-2 6 season) 2025 Influenza (#1) 2025 04/14/2016 RSV (1 - 1-dose 75+ series) 2040 Hepatitis C Screening Completed 05/07/2017 HPV Vaccine (No Doses Required) Completed Hep A Aged Out No longer eligi ble based on patient's age to complete this topic Hib Aged Out No longer eligi ble based on patient's age to complete this topic Meningococcal ACWY Aged Out No longer eligible based on patient's age to complete this topic
[2025-06-11 06:50] VITALS: BP 120/61; PULSE 72; RESP 12; TEMP 36.3; O2SAT 94
[2025-06-11 07:03] LABS: Glucose, Whole Blood 139 mg/dL (60-115)
--- NOTE | 2025-06-11 07:13 | P.CONAN_ITS ---
FORMERLY [facility], [facility] Active Problems Active Problems: All Active Problems (Updated 06/07/25 @ 08:46 by Thalia Goff RN) Lumbar radiculitis (Acute) Past Medical History Medical History Anxiety Depression COPD (chronic obstructive pulmonary disease) PTSD (post-traumatic stress disorder) GERD (gastroesophageal reflux disease) IBS (irritable bowel syndrome) Diabetes HTN (hypertension) PVD (peripheral vascular disease) Asthma Arthritis Surgical History Surgical History H/O colonoscopy Hx of tubal ligation Hx of spinal surgery Hx of hysterectomy Hx of hernia repair Hx of cholecystectomy Hx of carpal tunnel repair History of History of Problems with Anesthesia: No Social History Social History Household Members: Spouse Are you a primary child day care teacher to a significant other at home: No Do you presently have visiting nurse or other home services: No Patient Tobacco Use Status: Current everyday Tobacco user Tobacco use type: Cigarette Cigarette Packs Per Day: 1 Cigarettes Per Day: 20.0 Years Smoked: 44 Second Hand Smoke Exposure: No Use of substances other than those prescribed or required for medical reasons: Yes Substance Use Type: Marijuana Substance Use Frequency: Daily Have you been hit, kicked, punched, or otherwise hurt by someone within the past year? If so, by whom?: No Are you DNR?: No Advance Directives: No Advance Directives Information Provided: Yes Advance Directives on File: No Patient : No : No Meds Allergies Allergy/AdvReac Type Severity Reaction Status Date / Time alogliptin Allergy Intermediate Gastrointestinal Verified 06/07/25 08:28 Upset amoxicillin (From Augmentin) Allergy Intermediate tongue Verified 06/07/25 08:28 cracks cephalexin (From Keflex) Allergy Intermediate mouth sores Verified 06/07/25 08:28 clavulanic acid (From Allergy Intermediate tongue Verified 06/07/25 08:28 Augmentin) cracks metformin Allergy Intermediate Gastrointestinal Verified 06/07/25 08:28 Upset Seasonal Allergies Allergy Intermediate hayfever Verified 06/07/25 08:28 symptoms simvastatin Allergy Intermediate Gastrointestinal Verified 06/07/25 08:28 Upset Home Medications ?Medication ?Instructions ?Recorded ?Confirmed ?Last Taken ?Type albuterol sulfate 90 mcg/actuation 2 puff inhalation Q 4-6H PRN 06/07/25 06/07/25 06/11/25 History aerosol inhaler Shortness Of Breath duloxetine 60 mg capsule,delayed 60 mg PO DAILY 06/07/25 Unknown History release sprinkle hydrochlorothiazide 25 mg tablet 25 mg PO DAILY 06/07/25 Unknown History hydroxyzine HCl 25 mg tablet 25 mg PO QID PRN Anxiety 06/07/25 06/07/25 Unknown History ibuprofen 800 mg tablet 800 mg PO Q8H PRN Pain 06/0706/07/25 Unknown History insulin aspart U-100 100 unit/mL 8 - 18 unit subcut TI DAC 06/07/25 06/07/25 Unknown History (3 mL) subcutaneous pen insulin glargine 100 unit/mL (3 60 unit subcut BEDTIME 06/07/25 06/07/25 Unknown History mL) subcutaneous pen (Lantus Solostar U-100 Insulin) ondansetron 8 mg disintegrating 8 mg PO TID 06/07/25 1 08/07/24 Unknown History tablet oxycodone-acetaminophen 10 mg-325 1 tab PO Q8H PRN Guerda n 06/07/25 06/07/25 Unknown History mg tablet (Percocet) rosuvastatin 40 mg tablet 40 mg PO DAILY 06/07/2505/20 Unknown History umeclidinium 62.5 mcg-vilanterol 1 inh inhalation FRIDA Y 06/07/25 06/07/25 Unknown History 25 mcg/actuation powdr for inhalation (Anoro Ellipta) valsartan 80 mg tablet 80 mg PO DAILY 06/07/2505/20 Unknown History tirzepatide 10 mg/0.5 mL 10 mg subcut QWEEK 06/11/25 06/11/25 05/31/25 History subcutaneous pen injector (Abnerunsherice) Exam Height,Weight and Vital Signs: Height 5 ft 4 in Weight 120 kg Last Vital Signs Temp 97.4 F 06/11/25 06:50 Pulse 72 06/11/25 06:50 Resp 12 06/11/25 06:50 BP 120/61 06/11/25 06:50 Pulse Ox 94 06/11/25 06:50 O2 Del Method Room Air 06/11/25 06:50 Pertinent Lab Results Pertinent Lab Results: Laboratory Tests 06/11/25 06:58 POC Glucose 139 H Airway Mallampati Class: III TM Dist: >3cm Neck ROM: Limited Partial: Upper and Lower Loose/Missing/Broken Teeth: Yes, Upper and Lower Heart: RRR Lungs: CTA Assessment and Plan Assessment Anesthesia Assessment: Anesthesia Plan Discussed and Chart Reviewed Final Anesthetic Review History of Problems with Anesthesia: No NPO: Yes ASA Class: III Final Preanesthetic Review: Meds/Allgs Chart Reviewed, Consent Obtained/Reviewed and Anes Risks/Benef Reviewed Patient Risk: Intermediate Procedure Risk: Low Anesthetic Plan Anesthetic Plan: MAC: Disposition: Standard PACU
--- NOTE | 2025-06-11 07:14 | MHC.SHP ---
Pre-Procedural Eval Section A - 24 Hr Update-Section A only Date of Service: 06/11/25 The patient is an INPATIENT: No Section B - Complete if H&P > 30 days Chief Complaint: Radiculopathy, lumbar region Details of Present Illness: History of chronic lumbar radiculitis Relevant Family History (Specify if Yes): No Relevant Social History: None Present Medications: see Short Stay Collaborative assessment Medical History: No relevant PMH History of Previous Operations: No relevant previous surgery Allergies: Allergies Allergy/AdvReac Type Severity Reaction Status Date / Time alogliptin Allergy Intermediate Gastrointestinal Verified 06/07/25 08:28 Upset amoxicillin (From Augmentin) Allergy Intermediate tongue Verified 06/07/25 08:28 cracks cephalexin (From Keflex) Allergy Intermediate mouth sores Verified 06/07/25 08:28 clavulanic acid (From Allergy Intermediate tongue Verified 06/07/25 08:28 Augmentin) cracks metformin Allergy Intermediate Gastrointestinal Verified 06/07/25 08:28 Upset Seasonal Allergies Allergy Intermediate hayfever Verified 06/07/25 08:28 symptoms simvastatin Allergy Intermediate Gastrointestinal Verified 06/07/25 08:28 Upset Review of Systems Sugical H&P ROS: Negative: Constitution, Cardiovascular, Respiratory, Neurological, Psychiatric, Hem-Onc, Allergic/Immunologic, Gastrointestinal, Genitourinary, Musculoskeletal, Integumentary, Endocrine and Eyes/Ears/Nose/Throat Exam Surgical H&P Exam: Normal: HEENT, Normal: Heart, Normal: Lungs, Normal: Extremities, Normal: Abdomen, Normal: Skin and Normal: Neurological Plan Diagnosis/Plan: Unchanged I have reviewed the history and physical and performed a pertinent physical examination on my patient. No changes have occurred unless specified. Time Spent With Patient Time: Total time managing care of this patient today ____ minutes.
--- NOTE | 2025-06-11 07:19 | W.PM.OPN ---
Operative Note Operative Note Date of Service: 06/11/25 Narrative: Procedure performed: Right L4 transforaminal epidural steroid injection Preop diagnosis: Lumbar radiculitis Postop diagnosis: The same Anesthesia: Mac After informed consent was obtained, patient was placed on the procedure table in a prone position. Skin over lumbosacral area was prepped and draped in usual sterile manner. Right L4 pedicle was visualized utilizing fluoroscopy. 5 inch 22 gauge spinal needle was introduced percutaneously and advanced towards the pedicle at about 6 o'clock position. Once level of neural foramina was reached, needle placement was verified utilizing 3 cc of Omnipaque contrast solution. Excellent flow through the neural foramina and epidural spread was identified without evidence of vascular uptake. Total volume of 6 cc containing 2 cc of 1% lidocaine, 40 mg of triamcinolone and normal saline solution were injected after negative aspiration for blood and cerebrospinal fluid. Radiation exposure was documented in the chart.
[2025-06-11] MEDS: Lactated Ringers 1,000 ML 80 ML IVCONT (07:25)
[2025-06-11 07:54] VITALS: BP 104/52; PULSE 65; RESP 16; TEMP 36.3; O2SAT 94
[2025-06-11 08:08] VITALS: BP 95/48; PULSE 62; RESP 18; TEMP 36.3; O2SAT 94
== END 2025-06-11 08:27 | disposition home or self-care (01) ==
PROVIDERS: Visit Provider Physical Medicine & Rehabilitation
PROC: (CPT 64483; principal; 2025-06-11 07:30)
DX: M54.16 Radiculopathy, lumbar region (principal); M19.90 Unspecified osteoarthritis, unspecified site; M46.1 Sacroiliitis, not elsewhere classified; M53.3 Sacrococcygeal disorders, not elsewhere classified; M48.062 Spinal stenosis, lumbar region with neurogenic claudication; I10 Essential (primary) hypertension; I73.9 Peripheral vascular disease, unspecified; G62.9 Polyneuropathy, unspecified; J45.909 Unspecified asthma, uncomplicated; E78.00 Pure hypercholesterolemia, unspecified; E11.9 Type 2 diabetes mellitus without complications; E66.01 Morbid (severe) obesity due to excess calories; Z79.4 Long term (current) use of insulin; Z79.85 Long-term (current) use of injectable non-insulin antidiabetic drugs; Z79.51 Long term (current) use of inhaled steroids; Z79.899 Other long term (current) drug therapy; F17.210 Nicotine dependence, cigarettes, uncomplicated; Z98.890 Other specified postprocedural states
CPT/HCPCS: 64483; 82947; J2003; J2250; J3010; J3301; Q9967

== ENCOUNTER → 2025-06-11 06:25 | Outpatient (BNV) | payer MEDICARE, MEDICAID, SELFPAY | PROVIDERS: Visit Provider Physical Medicine & Rehabilitation | DX: M54.16 Radiculopathy, lumbar region (principal) | CPT/HCPCS: 64483 ==